=== PATIENT | female | born 2000 | race Caucasian/White ===

== ENCOUNTER 2022-08-21 20:53 | Emergency (ER) | payer BC, OTHER ==
--- NOTE | 2022-08-21 21:25 | ERPHSYRPT ---
- History of Present Illness Source: patient, other (Mother) Patient Subjective Stated Complaint: Pt reports she started her menstrual cycle today and the cramping in her lower abdomen is "really bad". She states her cycles have always been irregular, she skipped her cycle last month. Unsure of how many pads she is going through but feels like her period is heavy for her. Pt mentioned she does have covid but only experiencing minimal congestion and sore throat, here for the menstrual cramps. Triage Nursing Assessment: Pt alert and oriented x3. No apparent respiratory distress. Ambulated to ED cot without difficulty. Accompanied by pts grandmother. Skin w/p/d. Abdomen flat/soft/nontender. Physician History: 22 yo WF cc of pelvic cramping after starting her period. pt states that the pain is a 10. Pt tested + for CV19 yesterday and has coryza/mild cough/headache. She denies N/V/D. Timing/Duration: today Activites at Onset: rest Quality: cramping Onset Location: pelvic pain Pain Radiation: none Severity of Pain-Max: severe Severity of Pain-Current: severe Prior abdominal problems: similar symptoms (w her periods) Modifying Factors: Improves With: nothing Associated Symptoms: denies symptoms Allergies/Adverse Reactions: No Known Drug Allergies Allergy (Unverified 08/21/22 20:58) Home Medications: Naproxen 500 mg [Naprosyn 500 MG] 500 mg PO BID PRN 08/21/22 [History] Hx Tetanus, Diphtheria Vaccination/Date Given: Yes Hx Influenza Vaccination/Date Given: Yes Hx Pneumococcal Vaccination/Date Given: No Travel Risk - International Travel Have you traveled outside of the country in past 3 weeks: No - Coronavirus Screening Are you exhibiting any of the following symptoms?: Yes Symptoms: Headaches/Body Aches/Fatigue Close contact with a COVID-19 positive Pt in past 14-21 Days: No - Vaccine Status Have you recieved a Covid-19 vaccination: Yes Enamel Sprayer: Toppr - Vaccination Dates Date of 2cond Vaccination (if applicable): ? - Review of Systems Constitutional: No Symptoms, Fever Eyes: No Symptoms Ears, Nose, & Throat: No Symptoms Respiratory: No Symptoms, Cough Cardiac: No Symptoms Abdominal/Gastrointestinal: No Symptoms, Abdominal Pain (Supra-pubic pain) Genitourinary Symptoms: No Symptoms Musculoskeletal: No Symptoms, Arthralgias, Myalgias Skin: No Symptoms Neurological: No Symptoms Psychological: No Symptoms Endocrine: No Symptoms Hematologic/Lymphatic: No Symptoms Immunological/Allergic: No Symptoms - Past Medical History Pertinent Past Medical History: No - Past Surgical History Past Surgical History: No - Social History Smoking Status: Never smoker Exposure to second hand smoke: Yes Drug Use: none Patient Lives Alone: Yes - Female History Hx Last Menstrual Period: 08/21/22 Hx Now: No - Nursing Vital Signs Nursing Vital Signs: Initial Vital Signs Temperature 97.9 F 08/21/22 20:57 Pulse Rate 79 08/21/22 20:57 Respiratory Rate 16 08/21/22 20:57 Blood Pressure 124/76 08/21/22 20:57 O2 Sat by Pulse Oximetry 100 08/21/22 20:57 Pain Scale Pain Intensity 10 - Physical Exam General Appearance: no apparent distress Eye Exam: PERRL/EOMI, eyes nml inspection Ears, Nose, Throat Exam: normal ENT inspection, TMs normal, pharynx normal, moist mucous membranes Neck Exam: normal inspection, non-tender, supple, full range of motion, No meningismus, No mass, No Brudzinski, No Kernig's Respiratory Exam: normal breath sounds, lungs clear, airway intact, No respiratory distress Cardiovascular Exam: regular rate/rhythm, normal heart sounds, normal peripheral pulses, capillary refill <2 sec, No murmur Gastrointestinal/Abdomen Exam: soft, normal bowel sounds, No tenderness Back Exam: normal inspection, normal range of motion, No CVA tenderness, No vertebral tenderness Extremity Exam: normal inspection, normal range of motion, pelvis stable Neurologic Exam: alert, oriented x 3, cooperative, mediator II-XII nml as tested, normal mood/affect, nml cerebellar function, nml station & gait, sensation nml Skin Exam: normal color, warm, dry, No rash Lymphatic Exam: No adenopathy SpO2 Interpretation: normal SpO2: 100 O2 Delivery: Room Air - Course Nursing assessment & vital signs reviewed: Yes Ordered Tests: Active Orders 24 hr Category Date Time Status HCG QUALITATIVE, SERUM Stat Lab 08/21/22 21:45 Completed Medication Summary Discontinued Medications Generic Name Dose Route Start Last Admin Trade Name Freq PRN Reason Stop Dose Admin Ketorolac Tromethamine 30 mg 08/21/22 22:12 08/21/22 22:17 Ketorolac Tromethamine 30 Mg/Ml Inj IM 08/21/22 22:13 30 mg STAT ONE Administration Ketorolac Tromethamine Confirm 08/21/22 22:16 Ketorolac Tromethamine 30 Mg/Ml Inj Administered 08/21/22 22:17 Dose 30 mg .ROUTE .STK-MED ONE Lab/Rad Data: Laboratory Results 08/21/22 Range/Units 21:45 Serum HCG, Qual NEGATIVE (NEGATIVE) - Progress Progress Note: 08/22/22 00:07 Nursing note and vital signs reviewed No food or housing insecurities noted Additional history per mother Lab results reviewed and shared w pt/mother 08/22/22 00:08 Serial abdominal exams w no TTP 08/22/22 00:09 30mg IM Toradol Counseled pt/family regarding: lab results, diagnosis, need for follow-up Medical Desision Making - Independent Historian Additional History obtained from: Mother - Diagnostic Testing Diagnostic test were ordered, analyzed, and reviewed by me: Yes - Risk of complications The pt has a mod risk of morbidity or mortality based on: Need for prescription drug management - Departure Departure Disposition: Home Clinical Impression: Menstrual cramps, COVID-19 Condition: Stable Critical Care Time: No Referrals: AKASH DUKES NP [Primary Care Provider] - Follow up/PCP as directed Instructions: Severe Abdominal Pain Additional Instructions: Toradol for pain Follow up with your family MD or Ob-supervisor shuttle veneering Return to ER for increasing pain or temperature greater than 100.5 Prescriptions: Ketorolac Trometh 10 mg Tab [TORAdol 10 MG TABLET] 10 mg PO TID PRN PRN #10 tablet PRN Reason: Pain
[2022-08-21 22:10] LABS: HCG SERUM TEST NEGATIVE (NEGATIVE)
[2022-08-21 22:11] VITALS: BP 111/69
[2022-08-21 22:12] VITALS: PULSE 70
[2022-08-21] MEDS ORDERED: TORAdol 30 mg Injection IM ONE (22:12)
[2022-08-21] MEDS ORDERED: TORAdol 30 mg Injection ONE (22:16)
[2022-08-21 22:17] VITALS: O2SAT 100
== END 2022-08-21 22:45 | disposition home or self-care (01) ==
LOC: ED 20:53
DX: U07.1 COVID-19 (principal); N94.6 Dysmenorrhea, unspecified; R09.81 Nasal congestion; R05.9 Cough, unspecified; R51.9 Headache, unspecified
CPT/HCPCS: 36415; 84703; 96372; 99283; J1885